=== PATIENT | female | born 1965 | race Caucasian/White ===

== ENCOUNTER 2017-05-20 22:36 | Emergency (ER) | payer OTHER ==
[2017-05-20 23:01] VITALS: BP 132/95; PULSE 79; RESP 16; TEMP 98; O2SAT 100
== END 2017-05-20 23:06 | disposition home or self-care (01) | DRG 538 ==
LOC: ED 22:36
DX: S76.911A Strain of unspecified muscles, fascia and tendons at thigh level, right thigh, initial encounter (principal); S76.011A Strain of muscle, fascia and tendon of right hip, initial encounter
CPT/HCPCS: 99282

== ENCOUNTER 2018-01-22 17:04 | Emergency (ER) | payer OTHER ==
[2018-01-22 17:14] VITALS: TEMP 97.8
[2018-01-22] MEDS ORDERED: SODIUM CHLORIDE 0.9% 1000ML 1,000 ML IV SCH (17:15)
[2018-01-22 17:22] LABS: BASOPHILS % (AUTO) 1 % (0-3); EOSINOPHILS % (AUTO) 1 % (0-9); HEMATOCRIT 40 % (35-47); HEMOGLOBIN 12.4 gm/dl (12.0-15.5); LYMPHOCYTES % (AUTO) 16.7 % (10-50); MEAN CORPUSCULAR HEMOGLOBIN 29.1 pg (27.0-32.0); MEAN CORPUSCULAR HGB CONC 31.1 gm/dl (32.0-36.0); MEAN CORPUSCULAR VOLUME 93 fL (81-99); MONOCYTES % (AUTO) 2.9 % (0-12); NEUTROPHILS % (AUTO) 78.2 % (37-80)
[2018-01-22] MEDS ORDERED: LORAZEPAM 2 MG/ML 10ML MDV 2 MG/ML VIAL IV ONE (17:23)
[2018-01-22] MEDS ORDERED: LORAZEPAM 2 MG/ML SOL ONE (17:24)
[2018-01-22 17:45] LABS: ALBUMIN 3.6 gm/dl (3.4-5.0); ALKALINE PHOSPHATASE 82 IU/L (46-116); ALT 18 IU/L (14-63); AST 13 IU/L (15-37); BILIRUBIN,TOTAL 0.4 mg/dl (0.2-1.0); BLOOD UREA NITROGEN 5 mg/dl (7-18); CALCIUM 9.1 mg/dl (8.5-10.1); CARBON DIOXIDE 23.2 mEq/L (21-32); CHLORIDE 102 mMol/L (98-107); CREATININE 0.64 mg/dl (0.60-1.00); GLUCOSE 114 mg/dl (74-106); MAGNESIUM 2.1 mg/dl (1.8-2.4); POTASSIUM 3.9 mMol/L (3.5-5.1); SODIUM 138 mMol/L (136-145); THYROID STIMULATING HORMONE 10.927 uIU/ml (0.358-3.740); TOTAL PROTEIN 7.6 gm/dl (6.4-8.2); TROP I < 0.017 ng/ml (0.000-0.056)
[2018-01-22 17:55] LABS: APPEARANCE,URINE Clear; BILIRUBIN,URINE NEGATIVE (NEGATIVE); COLOR,URINE Yellow; GLUCOSE, URINE (UA) NEGATIVE (NEGATIVE); KETONES,URINE NEGATIVE (NEGATIVE); LEUKOCYTE ESTERASE ,URINE TRACE (NEGATIVE); NITRATE,URINE NEGATIVE (NEGATIVE); OCCULT BLOOD,URINE NEGATIVE (NEG-TRACE); UROBILINOGEN,URINE 0.2 (0.2-1.0 EU)
[2018-01-22 18:09] LABS: AMPHETAMINES NEGATIVE (NEGATIVE); BARBITUATES NEGATIVE (NEGATIVE); BENZODIAZEPINES NEGATIVE (NEGATIVE); CANNABINOL(THC) NEGATIVE (NEGATIVE); COCAINE(COC) NEGATIVE (NEGATIVE); METHADONE NEGATIVE (NEGATIVE); METHAMPHETAMINES NEGATIVE (NEGATIVE); OPIATES(OPI) NEGATIVE (NEGATIVE); OXYCODONE(OXY) NEGATIVE (NEGATIVE); PROPOXYPHENE(PPX) NEGATIVE (NEGATIVE); TRICYCLIC ANTIDEPRESSANTS NEGATIVE (NEGATIVE)
[2018-01-22 18:17] LABS: BACTERIA 2+ (< 1+); CRYSTALS NEGATIVE (0-3 AVE/HPF); RBC,URINE 0-1 (0-3AV/HPF)
[2018-01-22 18:33] VITALS: RESP 18
[2018-01-22 19:41] VITALS: BP 107/75; PULSE 64; O2SAT 98
== END 2018-01-22 19:30 | disposition short-term general hospital (02) | DRG 310 ==
LOC: ED 17:04
DX: I47.2 Ventricular tachycardia (principal)
CPT/HCPCS: 71045; 80053; 80305; 81001; 82550; 83735; 83880; 84443; 84484; 85025; 87088; 93005; 96365; 96366; 96374; 99291; J2060